=== PATIENT | male | born 1945 | race Caucasian/White ===

== ENCOUNTER 2019-06-20 05:20 | Observation (INO) | payer MEDICARE, OTHER ==
[2019-06-17 15:15] LABS: BASOPHILS # (AUTO) 0.1 (0.0-0.1); BASOPHILS % 1.1 % (0.0-1.0); EOSINOPHILS # (AUTO) 0.5 (0.0-0.4); EOSINOPHILS % 6.2 % (0.0-6.0); HEMATOCRIT 43.3 % (38.2-49.6); HEMOGLOBIN 13.9 g/dL (14.0-18.0); LYMPHOCYTES # (AUTO) 2.1 (1.0-3.2); LYMPHOCYTES % 27.3 % (18.0-39.1); MEAN CORPUSCULAR HEMOGLOBIN 28.5 pg (28-32); MEAN CORPUSCULAR HGB CONC 32.1 g/dL (31-35); MEAN CORPUSCULAR VOLUME 88.9 fL (81-99); MONOCYTES # (AUTO) 0.7 (0.2-0.8); NEUTROPHILS # (AUTO) 4.2 (2.1-6.9); NEUTROPHILS % 55.7 % (38.7-80.0); PLATELET COUNT 145 x10e3/uL (140-360); RED BLOOD COUNT 4.87 x10e6/uL (4.3-5.7); RED CELL DISTRIBUTION WIDTH 14.8 % (11.7-14.4)
--- NOTE | 2019-06-17 15:18 | Diagnostic Imaging Report ---
Chest, 2 views, 06/17/2019. History: Preop, knee surgery. Comparison: None available. Findings: The cardiomediastinal silhouette and pulmonary vasculature are within normal limits. The lungs are clear without evidence of consolidation or pleural effusion. Degenerative changes are present throughout the thoracic spine. There are no acute osseous or soft tissue abnormalities. Impression: No acute cardiopulmonary abnormality. Signed by: Michael Sullivan on 06/17/2019 3:15 PM
[2019-06-17 15:32] LABS: ANION GAP 16.7 mmol/L (8-16); CALCIUM 9.8 mg/dL (8.4-10.2); CREATININE, SERUM 1.52 mg/dL (0.72-1.25); POTASSIUM 4.7 mmol/L (3.5-5.1)
[~2019-06-20] VITALS: Ht 167.6 cm; Wt 117.5 kg
[~2019-06-20 05:20] MED LIST: ADVAIR 100-501 EACH INH; ALBUTEROL0.63 MG/3 INH; ALPROSTADIL UR; ARTIFICIAL SALIVA; ASPIR-LOW81 MG PO; ASPIRIN325 MG PO; ATORVASTATIN CA10 MG PO; CAPSAICIN TOP; CARBAMIDE PEROX15 ML EACH EAR; CBD PO; DILTIAZEM 24HR120 M1 PO; FERROUS GLUCON324 M2 PO; FINASTERIDE5 MG PO; FLOMAX0.4 MG PO; GABAPENTIN100 MG PO; HYDROCODON-ACE1 EA12 PO; LAMOTRIGINE (BL25 MG PO; LIDOCAINE PATCH TOP; LISINOPRIL10 MG PO; MELOXICAM15 MG PO; METFORMIN HCL500 MG PO; METOPROLOL SUCC50 MG PO; MOMETASONE FUR PO; NIFEDIPINE10 MG PO; NORCO 7.5-3251 EACH PO; OMEPRAZOLE40 MG PO; PHENTERMINE H37.5 M1 PO; PREGABALIN PO; PROAIR HFA INH8.5 GM PO; REVATIO20 MG PO; SERTRALINE HCL100 MG PO; SIMVASTATIN40 MG PO; SUMATRIPTAN SUC25 MG PO; TIZANIDINE HCL4 MG PO; VITAMIN B-121000 MC1 PO; VITAMIN D33000 UNIT PO; [UNRECOGNIZED DRUG - CODE] PO; [UNRECOGNIZED DRUG - OTHER]; [UNRECOGNIZED DRUG - OTHER] PO; [UNRECOGNIZED DRUG - OTHER] PO
--- OUTSIDE RECORDS SUMMARY | 2019-06-20 05:26 | XMS REPORT ---
Author Author [facility] Address Unknown Phone Unavailable Care Team Providers Care Hotel Service Manager Name Role Phone BETTINA APODACA Unavailable Unavailable Payers Payer Name Policy Type Policy Number Effective Date Expiration Date Problems This patient has no known problems. Allergies, Adverse Reactions, Alerts Allergy Name Allergy Type Status Severity Reaction(s) Onset Date Inactive Date Treating Clinician Comments No Known Drug Intolerances DA Active U 1996-12-05 00:00:00 Not Converted 80. See Text. DA Active U 1996-12-05 00:00:00 Medications This patient has no known medications. Results Test Description Test Time Test Comments Text Results Atomic Results Result Comments CHEST 2 VIEWS 2019-06-17 15:15:00 [place] [address] Patient Name: BETTINA BURCIAGA MR #: [id number] : 1945 Age/Sex: 74/M Req #: [id number] Adm Physician: Ordered by: BETTINA APODACA MD Report #: [id number] Location: OR Room/Bed: Procedure: [id number] DX/CHEST 2 VIEWS Exam Date: 06/17/19 Exam Time: 1500 REPORT STATUS: Signed Chest, 2 views, 06/17/2019. History: Preop, knee s urgery. Comparison: None available. Findings: The cardiomediastinal silhouette and pulmonary vasculature are within normal limits. The lungs are clear without evidence of consolidation or pleural effusion. Degenerative changes are present throughout the thoracic spine. There are no acute osseous or soft tissue abnormalities. Impression: No acute cardiopulmonary abnormality. Signed by: Lidia Sullivan on 06/17/2019 3:15 PM Dictated By: LIDIA SULLIVAN MD [id number] Transcribed By: NIKA on 06/17/19 1081 COPY TO: BETTINA APODACA MD
--- OUTSIDE RECORDS SUMMARY | 2019-06-20 05:26 | XMS REPORT | Summary of Care ---
Author Author Griselda Mckeon Unknown Address Unknown Phone Unavailable Care Team Providers Care 911 Dispatcher Name Role Phone ANDREI Calvillo, REHAN Unavailable Unavailable ANDREI HAZEL, REHAN Unavailable Unavailable Unavailable Unavailable Functional Status Name Dates Details Functional status health issues are not documented Status: Name Dates Details Cognitive status health issues are not documented Status: Problems Name Dates Details Bladder spasms (596.89, N32.89) Status: Active Medications Name Dates Details Metoprolol Succinate ER 100 MG Oral Tablet Extended Release 24 Hour R.N. * Start : 23-Jun-2016 Active Lisinopril 30 MG Oral Tablet * Refills: 0 R.N. * Start : 23-Jun-2016 Active dilTIAZem HCl - 120 MG Oral Tablet * Refills: 0 R.N. * Start : 23-Jun-2016 Active Omeprazole 20 MG Oral Capsule Delayed Release * Refills: 0 R.N. * Start : 23-Jun-2016 Active metFORMIN HCl - 500 MG Oral Tablet * Refills: 0 R.N. * Start : 23-Jun-2016 Active Finasteride 5 MG Oral Tablet * Refills: 0 R.N. * Start : 23-Jun-2016 Active ProAir RespiClick 108 (90 Base) MCG/ACT Inhalation Aerosol Powder Breath Activat ed * Refills: 0 R.N. * Start : 23-Jun-2016 Active Sildenafil Citrate 20 MG Oral Tablet * Refills: 0 R.N. * Start : 23-Jun-2016 Active Gabapentin 100 MG Oral Capsule * Refills: 0 R.N. * Start : 23-Jun-2016 Active Meloxicam 15 MG Oral Tablet * Refills: 0 R.N. * Start : 23-Jun-2016 Active Atorvastatin Calcium 80 MG Oral Tablet * Refills: 0 R.N. * Start : 23-Jun-2016 Active Aspir-Low 81 MG Oral Tablet Delayed Release * Refills: 0 R.N. * Start : 23-Jun-2016 Active Hydrocortisone 1 % External Cream * Refills: 0 R.N. * Start : 23-Jun-2016 Active Methocarbamol 750 MG Oral Tablet * Refills: 0 R.N. * Start : 23-Jun-2016 Active Triamcinolone Acetonide 0.1 % External Ointment * Refills: 0 R.N. * Start : 23-Jun-2016 Active lamoTRIgine 25 MG Oral Tablet * Refills: 0 R.N. * Start : 12-Mar-2017 Active Sertraline HCl - 25 MG Oral Tablet * Refills: 0 R.N. * Start : 12-Mar-2017 Active 30 Tablet Bottle Acetaminophen-Codeine #3 300-30 MG Oral Tablet * Refills: 0 R.N. * Start : 12-Mar-2017 Active Hyoscyamine Sulfate 0.125 MG Sublingual Tablet Sublingual PLACE 1 TABLET UNDER THE TONGUE EVERY 3 TO 4 HOURS NEEDED FOR BLADDER SPASMS. * Quantity: 30 Refills: 0 REHAN FORBES M.D. * Start : 06-Jul-2017 Active Allergies and Adverse Reactions Name Dates Details No Known Drug Allergies (Allergy) Status: Active Past Medical History Name Dates Details History of Diabetes mellitus, type 2 (250.00, E11.9) Status: Resolved History of High blood pressure (401.9, I10) Status: Resolved Procedures Procedure Dates Details History of Abdominal panniculectomy Completed History of Circumcision Completed Immunization Name Dates Details Immunizations not documented Social History Name Dates Details Unknown if ever smoked Vital Signs Date Test Result Details No Known Vitals to report Results Date Description Value Details Results not documented Plan of Care Name Dates Details Planned Observations Planned Goals not documented Planned Encounters Appointment; REHAN FORBES M.D. On: 02-Dec-2018 13:00 Instructions Name Dates Details Instructions not documented Encounters Appointment; REHAN FORBES M.D. Encounter Diagnosis: Problem not documented On: 12-Mar-2017 14:00 Appointment; REHAN FORBES M.D. Encounter Diagnosis: Problem not documented On: 09-Apr-2017 13:15 Appointment; REHAN FORBES M.D. Encounter Diagnosis: Problem not documented On: 11-Jun-2017 14:15 Appointment; REHAN FORBES M.D. Encounter Diagnosis: Problem not documented On: 20-Jul-2017 13:45 Appointment; REHAN FORBES M.D. Encounter Diagnosis: Problem not documented On: 15-Oct-2017 13:15 Appointment; REHAN FORBES M.D. Encounter Diagnosis: Problem not documented On: 18-Jan-2018 13:30 Appointment; REHAN FORBES M.D. Encounter Diagnosis: Problem not documented On: 19-Jul-2018 13:45 Appointment; REHAN FORBES M.D. Encounter Diagnosis: Problem not documented On: 30-Aug-2018 14:00
[2019-06-20] MEDS ORDERED: DEXAMETHASONE SOD PHOS 10 MG/1 ML VIAL ONE (05:58)
[2019-06-20] MEDS ORDERED: CEFAZOLIN SOD 1 GM/NS 50ML 50 ML IV ONE (05:58)
[2019-06-20] MEDS ORDERED: GABAPENTIN 300 MG CAP ONE (05:58)
[2019-06-20] MEDS ORDERED: BACITRACIN 50,000 UNIT VIAL ONE (06:16)
[2019-06-20] MEDS ORDERED: VANCOMYCIN HCL 1 GM VIAL ONE (06:17)
[2019-06-20] MEDS ORDERED: TRANEXAMIC ACID 1,000 MG/10 ML ML ONE (06:17)
[2019-06-20] MEDS ORDERED: SODIUM CHLORIDE 0.9% 500ML 500 ML ONE ×2 (06:20→06:40)
[2019-06-20] MEDS ORDERED: VANCOMYCIN HCL 1,000 MG ONE (06:39)
[2019-06-20] MEDS ORDERED: ROPIVACAINE 246.25 MG, EPINEPHRINE HCL 1:1000 1ML 0.5 MG, CLONIDINE HCL 0.08 MG, KETORO... INJ ONE ×5 (08:00)
[2019-06-20] MEDS ORDERED: ACETAMINOPHEN 650 MG SUPP PR PRN (09:00)
[2019-06-20] MEDS ORDERED: CELECOXIB 100 MG CAP PO SCH (09:00)
[2019-06-20] MEDS: ASPIRIN 325 MG TAB PO SCH ×2 (09:00→16:13)
[2019-06-20] MEDS ORDERED: PROMETHAZINE HCL (IM) 25 MG/ML VIAL IM PRN (09:00)
[2019-06-20] MEDS ORDERED: HYDROCODONE/APAP 7.5MG-325MG 1 EA TAB PO PRN (09:00)
[2019-06-20] MEDS ORDERED: KETOROLAC TROMETHAMINE 30 MG/ML VIAL IV PRN (09:00)
[2019-06-20] MEDS ORDERED: DOCUSATE SODIUM 100 MG CAP PO PRN (09:00)
[2019-06-20] MEDS ORDERED: ONDANSETRON HCL INJ 2MG/ML 2ML 2 MG/ML VIAL IV PRN (09:00)
[2019-06-20] MEDS ORDERED: DIPHENHYDRAMINE HCL INJ 50 MG/ML VIAL IM/IV PRN (09:00)
[2019-06-20] MEDS ORDERED: HYDROCODONE/APAP 5MG-325MG TAB PO PRN (09:00)
--- NOTE | 2019-06-20 10:11 | Diagnostic Imaging Report ---
EXAMINATION: KNEE RIGHT 1-2 VIEWS INDICATION: Postoperative COMPARISON: None FINDINGS: Portable AP and lateral images of the right knee demonstrate immediate postoperative findings of right total knee replacement. Alignment appears anatomic. No unexpected fracture. Postoperative subcutaneous soft tissue emphysema. Small joint effusion. Surgical skin vasu in place. IMPRESSION: Anatomic alignment status post right total knee replacement. Signed by: Jemima Tubbs MD on 06/20/2019 10:09 AM
[2019-06-20] MEDS: ACETAMINOPHEN 1000 MG/100 ML IV SCH ×3 (12:00→23:38)
--- NOTE | 2019-06-20 13:42 | Operative Report ---
DATE OF PROCEDURE: 06/20/2019 SURGEON: Dre Montague MD DIRECTOR OF CORPORATE SPONSORSHIPS: Aldo Lopez, certified PA. PREOPERATIVE DIAGNOSIS: Osteoarthritis, right knee. POSTOPERATIVE DIAGNOSIS: Osteoarthritis, right knee. PROCEDURE: Right total knee arthroplasty, * added complexity secondary to BMI of 40. INDICATIONS: The patient is a 74-year-old gentleman, who has end-stage arthritis in his right knee. He has failed conservative management and would like to proceed with a right total knee replacement. He has been through a left total knee replacement several years ago. The risks and benefits have been reviewed. The added challenges both for the surgery and his recovery due to his body mass index have been explained. He states he understands and wishes to proceed. PROCEDURE IN DETAIL: The patient was brought to the operating room and placed under general anesthetic. He received prophylactic antibiotics, a regional block, and tranexamic acid in the holding area. His right lower extremity was prepped and draped in a sterile manner. Throughout the case, added time and personnel was necessary due to the patient's BMI of 40. After a preoperative time-out, the extremity was exsanguinated and a proximal tourniquet was inflated to 300 mmHg. An anterior incision with a medial parapatellar arthrotomy was performed. Care was taken to avoid subcutaneous exposure to eliminate the creation of space. Soft tissue releases were performed to bring the knee up into flexion with the patella everted. The knee was extremely tight. Exposure was challenging. Marginal osteophytes, meniscal remnants, and the cruciate ligaments were removed. A [employer] Legion Knee System was used. The proximal tibia was carefully exposed. An extramedullary cutting guide was used to resect the tibia. The tibial base plate was a size 5. The central fin punch was impacted and attention was directed towards the distal femur. An intramedullary cutting guide was used to resect the distal femur in 6 degrees of valgus and rotation referencing off a combination of landmarks including Whitesides line, the epicondylar axis, and the posterior condyles. The femoral component was a size 6. The anterior and posterior cuts were made. Trial reduction was performed. A 9 mm ultracongruent tibial insert provided appropriate soft tissue balancing in full extension and 90 degrees of flexion. The patella was then resurfaced with a 35 mm x 9 mm patellar button. The thickness was checked before and after and was right around 23 mm. Patellar tracking was noted to be concentric. The trial implants were all then removed. A 100 mL premixed pericapsular KAREEM injection was placed into the surrounding soft tissue. The knee was thoroughly irrigated with a shower tip pulsatile lavage. All bone cuts had been irrigated with a spray mixture of diluted vancomycin and polymyxin spray. The components were cemented into place using a single mix of high viscosity Biomet cement preloaded with gentamicin. Care was taken to remove all extravasated cement. The wound was further irrigated while the cement cured. The wound was then closed after sprinkling 500 mg of vancomycin powder into the joint. The arthrotomy was closed with interrupted #1 Ethibond. The knee was put through flexion and extension to ensure a secure closure. The skin was closed with subcuticular Vicryl and vasu. A sterile Aquacel bandage was applied. The patient was extubated and transported to the recovery room in stable condition. Blood loss was minimal and all needle and sponge counts were correct. Dre Montague MD DR/UDAY /[id number]
[2019-06-20] MEDS ORDERED: PROPOFOL IV EMULSION 10 MG/ML 20 ML VIAL ONE (13:53)
[2019-06-20] MEDS ORDERED: SEVOFLURANE INHAL SOLN 250 ML PEN BTL ONE (13:53)
[2019-06-20] MEDS ORDERED: DEXAMETHASONE SOD PHOS INJ 4 MG/ML VIAL ONE (13:53)
[2019-06-20] MEDS ORDERED: ACETAMINOPHEN 1000 MG/100 ML IV ONE (13:53)
[2019-06-20] MEDS ORDERED: ONDANSETRON HCL INJ 2MG/ML 2ML 2 MG/ML VIAL ONE (13:53)
[2019-06-20] MEDS ORDERED: LIDOCAINE HCL 2% LOCAL INJ 5 ML SDV VIAL INJ ONE (13:53)
[2019-06-20] MEDS ORDERED: EPHEDRINE SULFATE INJ 50 MG/ML VIAL ONE (13:53)
[2019-06-20] MEDS ORDERED: LIDOCAINE 2% /EPINEPHRINE 20 ML SDV INJ ONE (14:32)
[2019-06-20] MEDS ORDERED: BUPIVACAINE HCL 0.5% INJ 30 ML VIAL INJ ONE (14:32)
--- NOTE | 2019-06-20 14:43 | NUR ---
RECEIVED PATIENT FROM PACU. PATIENT A/O X3, EVEN RESPIRATIONS ON RA. LUNG SOUNDS CLEAR TO AUSCULTATION. RIGHT KNEE DECLAN WRAP IN PLACE, DRY AND INTACT. LEFT KARINA HOSE IN PLACE. FOOT PUMPS BILATERALLY. LEFT HAND 20 GAUGE IV WITH NS @ 100 CC/HR. PATIENT DENIES PAIN AT THIS TIME. HAS VOIDED SINCE SURGERY. ORIENTED PATIENT TO ROOM AND CALL LIGHT. BED LOW, WHEELS LOCKED, SIDE RAILS X2. CALL LIGHT IN REACH WILL CONTINUE TO MONITOR PATIENT.
[2019-06-20 15:11] VITALS: BP 115/60
[2019-06-20 15:23] VITALS: BP 115/60
[2019-06-20] MEDS: CEFAZOLIN SOD 1 GM/NS 50ML 50 ML IV SCH ×2 (16:13→22:20)
[2019-06-20] MEDS: SODIUM CHLORIDE 0.9% 1000ML 1,000 ML IV SCH ×2 (16:13→17:35)
[2019-06-20] MEDS: CELECOXIB 200 MG CAP PO SCH (16:13)
[2019-06-20 16:36] VITALS: BP 115/60
[2019-06-20] MEDS ORDERED: FENTANYL CITRATE/PF 100MCG/2 ML INJ ONE (17:58)
[2019-06-20] MEDS ORDERED: MIDAZOLAM HCL 2 MG/2 ML VIAL ONE (17:58)
--- NOTE | 2019-06-20 18:25 | NUR ---
PATIENT PLACED ON CPM AT 50 DEGREES. PATIENT TOLERATING WELL.
--- NOTE | 2019-06-20 19:00 | NUR ---
Patient visited in room during nursing rounds. Patient alert and oriented x3. S/P right total knee replacement today (06/20/19). Whole right leg (from thigh to foot) wrapped with Krishna bandage. Pt also currently on CPM treatment (at 50 degrees). Pt states he feels fine and tolerating CPM treatment well. Call roper within reach. Will monitor closely.
--- NOTE | 2019-06-20 20:25 | NUR ---
CPM treatment done. Pt tolerated treatment well. Ice pack re-applied on right knee area.
[2019-06-20 20:32] VITALS: BP 118/59
[2019-06-20 21:00] VITALS: BP 118/59
[2019-06-20] MEDS ORDERED: ZOLPIDEM TARTRATE 5 MG TAB PO PRN (21:00)
[2019-06-21 00:19] VITALS: BP 108/55
[2019-06-21 04:00] VITALS: BP 121/65
[2019-06-21] MEDS: SODIUM CHLORIDE 0.9% 1000ML 1,000 ML IV SCH (04:52)
[2019-06-21 05:20] LABS: HEMATOCRIT 38.6 % (38.2-49.6); HEMOGLOBIN 12.5 g/dL (14.0-18.0)
[2019-06-21] MEDS: CEFAZOLIN SOD 1 GM/NS 50ML 50 ML IV SCH (05:30)
--- NOTE | 2019-06-21 05:50 | NUR ---
Krishna wrap taken off and replaced with KARINA hose. CPM treatment at 60 degrees initiated to run for about 2 hours. Will pass on to incoming dayshift nurse.
[2019-06-21] MEDS: ACETAMINOPHEN 1000 MG/100 ML IV SCH (06:25)
--- NOTE | 2019-06-21 07:00 | NUR ---
RECEIVED PATIENT AWAKE RESTING IN BED. CPM IN PLACE. BED LOW, WHEELS LOCKED, SIDE RAILS X2. CALL LIGHT IN REACH WILL CONTINUE TO MONITOR PATIENT.
--- NOTE | 2019-06-21 07:36 | Consultation ---
DATE OF CONSULTATION: HISTORY OF PRESENT ILLNESS: This is a 74-year-old gentleman who came in for bilateral knee osteoarthritis. The patient had a left total knee arthroplasty by Dr. Montague. The patient is in good spirits, right now on a CPM machine. No chest pain. No shortness of breath. No nausea. No vomiting. No diarrhea. PAST MEDICAL HISTORY: History of diet-controlled diabetes, history of hypertension and history of hyperlipidemia. PAST SURGICAL HISTORY: History of appendectomy, history of left total knee replaced in 2015, panniculectomy and also reconstruction by Urology. The patient also has multiple injections in the lower back. SOCIAL HISTORY: No EtOH. No IV drug abuse. The patient is . No alcohol use. Smoking history, negative. FAMILY HISTORY: Positive for hypertension, hyperlipidemia and diabetes mellitus. MEDICATIONS: Include diltiazem for hypertension, the patient gets Edex for ED, finasteride for BPH, gabapentin as needed, Lamisil 125 mg for onycholysis, lisinopril 20 mg daily, metformin 1000 mg daily, and simvastatin 5 mg daily. ALLERGIES: NO KNOWN DRUG ALLERGIES. REVIEW OF SYSTEMS: Negative for chest pain or shortness of breath. No nausea, vomiting, diarrhea, or constipation. Knee pain is controlled. PHYSICAL EXAMINATION: GENERAL: The patient is alert and oriented x3. VITAL SIGNS: Temperature 96.2, pulse of 60, respirations of 19, blood pressure is 121/65, pulse oximetry is 94%. HEENT: Normocephalic, atraumatic. Pupils reactive to light and accommodation. CVS: S1 and S2 normal. Regular rate and rhythm. ABDOMEN: Nontender nondistended. His right knee in a CPM machine. Wound is clean and dry. EXTREMITIES: No clubbing, no cyanosis. Trace edema. ASSESSMENT: Mr. Dre Samaniego with status post total knee replacement. The patient is currently doing well, post surgical H and H are 12.5 and 38.6. Chemistries, BUN of 26 and creatinine of 1.52. Glucose is running in the 146 to 230. PLAN: Continue with insulin sliding scale. The patient will need some fluid resuscitation for the acute kidney injury. Continue monitoring H and H. The patient can be discharged home to be followed as an outpatient basis and can look his knee function as an outpatient. Hydration is advised. The patient will follow up with me in about a week's time. MD LAURA Casper/VALDEZL /[id number]
--- NOTE | 2019-06-21 07:50 | NUR ---
REMOVED PATIENT FROM CPM, PATIENT TOLERATED WELL.
[2019-06-21] MEDS: CELECOXIB 200 MG CAP PO SCH (07:56)
[2019-06-21] MEDS: ASPIRIN 325 MG TAB PO SCH (07:56)
[2019-06-21 08:35] VITALS: BP 148/73
[2019-06-21 08:40] VITALS: BP 148/73
--- NOTE | 2019-06-21 09:19 | NUR ---
DR SANCHEZ OFFICE PREARRANGED FOLLOWING DISCHARGE PLAN OF:HOME [address] HOME HEALTH WITH HOME CARE PROVIDERS CONFIRMED WITH [facility] IN PERSON DME CPM AND ROLLING WALKER WITH WHEELS. PROVIDED BY [employer] [phone] SHEELA DUMAS SIGNED AND CHOICE ON CHART COPY LEFT WITH PATIENT GAVE CARD FOR QUESTIONS AND OR CONCERNS.
[2019-06-21] MEDS ORDERED: ONDANSETRON HCL 4 MG ORAL DISINTEGRATING TAB PO PRN (11:45)
[2019-06-21 11:59] VITALS: BP 133/63
[2019-06-21] MEDS ORDERED: ACETAMINOPHEN 1000 MG/100 ML IV PRN (12:00)
--- NOTE | 2019-06-21 12:50 | NUR ---
REMOVED PATIENTS IV. CATHETER TIP INTACT AND PRESSURE DRESSING APPLIED.
--- NOTE | 2019-06-21 12:53 | NUR ---
PATIENT DISCHARGED FROM FACILITY. PATIENT GATHERED ALL PERSONAL BELONGINGS, DISCHARGE INSTRUCTIONS, AND FOLLOW UP INFORMATION. PATIENT LEFT UNIT IN WHEELCHAIR AND WENT HOME VIA PRIVATE AUTO. NO S/S OF DISTRESS WHEN LEAVING FACILITY.
== END 2019-06-21 12:55 | disposition home or self-care (01) ==
LOC: OR 05:20 → PACU V 08:54 → MED/SURG 14:43
PROVIDERS: ADMIT Specialist; ATTEND Specialist
DX: M17.0 Bilateral primary osteoarthritis of knee (principal); I10 Essential (primary) hypertension; E66.01 Morbid (severe) obesity due to excess calories; Z68.41 Body mass index [BMI] 40.0-44.9, adult; Z96.652 Presence of left artificial knee joint; E78.5 Hyperlipidemia, unspecified; E11.9 Type 2 diabetes mellitus without complications
CPT/HCPCS: 27447; 36415 ×3; 71046; 73560; 80048; 82948 ×2; 85014; 85018; 85025; 86850; 86900; 86920; 97116 ×2; 97161; 97530; C1713; G0378 ×2; J0131 ×2; J0171; J0690 ×2; J1100 ×2; J1885; J2001 ×2; J2250; J2405; J2704; J2795; J3010; J3370 ×2; J7030; J7040

== ENCOUNTER 2021-05-26 13:57 | Observation (INO) | payer MEDICARE, OTHER ==
[~2021-05-26] VITALS: Ht 170.2 cm; Wt 116.1 kg
[2021-05-26] MEDS ORDERED: SODIUM CHLORIDE 0.9% 1000ML 1,000 ML IV STA (14:13)
[2021-05-26 15:34] LABS: CLARITY,URINE SL CLOUDY (CLEAR); COLOR,URINE YELLOW (YELLOW); KETONES,URINE NEGATIVE (NEGATIVE); LEUKOCYTE ESTERASE ,URINE NEGATIVE (NEGATIVE); NITRITE,URINE NEGATIVE (NEGATIVE); PROTEIN,URINE DIPSTICK NEGATIVE (NEGATIVE); URINE UROBILINOGEN 0.2 mg/dL (0.2 - 1)
[2021-05-26 15:43] LABS: BACTERIA,URINE RARE /HPF; EPITHELIAL CELLS,URINE FEW /LPF; WBC,URINE (MAN) 0-5 /HPF (0-5)
[2021-05-26] MEDS ORDERED: ONDANSETRON HCL INJ 2MG/ML 2ML 2 MG/ML VIAL IV PRN (16:15)
[2021-05-26] MEDS ORDERED: INSULIN REGULAR, HUMAN 100 UNIT/1 ML IV ONE (16:15)
[2021-05-26] MEDS ORDERED: LYRICA150 MG PO (16:39)
[2021-05-26] MEDS ORDERED: FUROSEMIDE40 MG PO (16:39)
[2021-05-26] MEDS ORDERED: MAGNESIUM OXID400 MG PO (16:39)
[2021-05-26] MEDS ORDERED: CLOPIDOGREL75 MG PO (16:39)
[2021-05-26] MEDS ORDERED: LISINOPRIL-HCT1 EACH PO (16:39)
[2021-05-26] MEDS ORDERED: CETIRIZINE HCL10 MG PO (16:39)
[2021-05-26] MEDS ORDERED: CYCLOBENZAPRINE10 MG PO (16:39)
[2021-05-26] MEDS ORDERED: INSULIN REGULAR, HUMAN 100 UNIT/1 ML ONE (18:47)
[2021-05-26] MEDS ORDERED: ONDANSETRON HCL INJ 2MG/ML 2ML 2 MG/ML VIAL ONE (18:47)
[2021-05-26 20:30] VITALS: BP 122/81
[2021-05-26] MEDS ORDERED: DEXTROSE 50% SYRINGE 50 ML IV PRN (20:30)
[2021-05-26 20:45] VITALS: BP 122/81
[2021-05-26 21:00] VITALS: BP 122/81
[2021-05-26] MEDS: INSULIN LISPRO 100 UNIT/1 ML 3ML VIAL SQ SCH (21:00)
[2021-05-26] MEDS ORDERED: INSULIN GLARGINE 100 UNITS/ML VIAL SQ SCH (21:00)
[2021-05-27] VITALS (7 sets, daily range): BP systolic 116–124; BP diastolic 74–101
[2021-05-27] MEDS ORDERED: PRILOSEC OTC20 MG PO (03:21)
[2021-05-27] MEDS ORDERED: FLONASE ALLERG9.9 ML INH (03:21)
[2021-05-27] MEDS ORDERED: VITAMIN D350 MCG PO (03:21)
[2021-05-27 08:26] LABS: ANION GAP 16.2 mmol/L (8-16); CALCIUM 9.3 mg/dL (8.4-10.2); CREATININE, SERUM 1.46 mg/dL (0.72-1.25); POTASSIUM 4.2 mmol/L (3.5-5.1)
[2021-05-27] MEDS: INSULIN LISPRO 100 UNIT/1 ML 3ML VIAL SQ SCH ×4 (08:47→20:04)
[2021-05-27] MEDS ORDERED: INSULIN GLARGINE 100 UNITS/ML VIAL SQ SCH (21:00)
== END 2021-05-27 20:35 | disposition home or self-care (01) ==
LOC: FSED 14:04 → ERHOLD 16:11 → MED/SURG2 19:01
PROVIDERS: ADMIT Family Medicine; ATTEND Family Medicine
DX: E11.65 Type 2 diabetes mellitus with hyperglycemia (principal); G93.41 Metabolic encephalopathy; E11.22 Type 2 diabetes mellitus with diabetic chronic kidney disease; I12.9 Hypertensive chronic kidney disease with stage 1 through stage 4 chronic kidney disease, or unspecified chronic kidney disease; N18.32 Chronic kidney disease, stage 3b; E66.01 Morbid (severe) obesity due to excess calories; G47.30 Sleep apnea, unspecified; I25.2 Old myocardial infarction; E78.5 Hyperlipidemia, unspecified; Z88.8 Allergy status to other drugs, medicaments and biological substances; I25.10 Atherosclerotic heart disease of native coronary artery without angina pectoris; Z82.49 Family history of ischemic heart disease and other diseases of the circulatory system; Z83.3 Family history of diabetes mellitus; Z68.41 Body mass index [BMI] 40.0-44.9, adult; Z20.822 Contact with and (suspected) exposure to COVID-19; Z79.82 Long term (current) use of aspirin
CPT/HCPCS: 36415 ×2; 70450; 71045; 80048; 80053; 81001; 81003; 82553; 82948 ×2; 83880; 84484; 85025; 85610; 93005; 99284; G0378 ×2; J1815; J1817; J2405; J7030; U0002

== ENCOUNTER → 2023-06-09 | Outpatient (REF) | payer MEDICARE ==
[~2023-06-09] MED LIST changes: +CETIRIZINE HCL10 MG PO; +CLOPIDOGREL75 MG PO; +CYCLOBENZAPRINE10 MG PO; +FLONASE ALLERG9.9 ML INH; +FUROSEMIDE40 MG PO; +LISINOPRIL-HCT1 EACH PO; +LYRICA150 MG PO; +MAGNESIUM OXID400 MG PO; +PRILOSEC OTC20 MG PO; +VITAMIN D350 MCG PO
== END ==
LOC: DX 13:02
PROVIDERS: ATTEND Family Medicine
DX: Z13.820 Encounter for screening for osteoporosis (principal)
CPT/HCPCS: 77080